=== PATIENT | female | born 1950 | race Two or more races ===

== ENCOUNTER 2017-06-13 08:56 | Outpatient (CLI) | payer OTHER ==
[~2017-06-13 08:56] MED LIST: CARTIA XT120 MG PO; COZAAR100 MG PO; NEURONTIN300 MG PO; NEURONTIN600 MG; NEXIUM20 MG/PACK PO; NEXIUM40 MG/PACK PO; PROCARDIA90 MG/BLIS; PROTONIX20 MG PO; SINGULAIR10 MG; SINGULAIR10 MG PO; SYNTHROID200 MCG; SYNTHROID300 MCG PO
== END 2017-06-13 09:01 | disposition home or self-care (01) ==
LOC: RAD 08:56
DX: M54.5 Low back pain (principal); M25.531 Pain in right wrist

== ENCOUNTER 2017-11-04 07:46 | Outpatient (CLI) | payer OTHER | END 2017-11-04 07:52 | disposition home or self-care (01) | LOC: RAD 07:46 | DX: M54.2 Cervicalgia (principal) ==

== ENCOUNTER 2018-01-01 16:44 | Inpatient (IN) | payer OTHER ==
[~2018-01-01] VITALS: Ht 160 cm; Wt 95.3 kg
== END 2018-01-19 11:04 | disposition home or self-care (01) | DRG 203 ==
LOC: MEDJ 16:44
PROC: 3E0F7GC Introduction of Other Therapeutic Substance into Respiratory Tract, Via Natural or Artificial Opening (ICD-10-PCS; principal; 2018-01-01)
PROC: 4A033R1 Measurement of Arterial Saturation, Peripheral, Percutaneous Approach (ICD-10-PCS; 2018-01-01)
DX: J45.52 Severe persistent asthma with status asthmaticus (principal); E03.8 Other specified hypothyroidism; I11.9 Hypertensive heart disease without heart failure; E78.4 Other hyperlipidemia; E11.9 Type 2 diabetes mellitus without complications; J30.89 Other allergic rhinitis; K76.0 Fatty (change of) liver, not elsewhere classified
CPT/HCPCS: 240

== ENCOUNTER 2018-05-08 10:45 | Outpatient (CLI) | payer OTHER | END 2018-05-08 10:51 | disposition home or self-care (01) | LOC: RAD 10:45 | DX: M25.511 Pain in right shoulder (principal); M25.512 Pain in left shoulder ==

== ENCOUNTER 2018-05-10 09:54 | Outpatient (CLI) | payer OTHER | END 2018-05-10 10:59 | disposition home or self-care (01) | LOC: SONOGRAMA 09:54 | DX: M75.121 Complete rotator cuff tear or rupture of right shoulder, not specified as traumatic (principal); M12.511 Traumatic arthropathy, right shoulder ==

== ENCOUNTER 2018-06-26 13:00 | Inpatient (IN) | payer OTHER ==
[~2018-06-26] VITALS: Ht 91.4 cm; Wt 5.0 kg
== END 2018-07-11 15:36 | DRG 202 ==
LOC: MEDJ 13:00 → MEDI 13:04 → MEDJ 15:18
PROVIDERS: ADMIT Internal Medicine
PROC: 3E0F7GC Introduction of Other Therapeutic Substance into Respiratory Tract, Via Natural or Artificial Opening (ICD-10-PCS; principal; 2018-06-26)
PROC: 4A033R1 Measurement of Arterial Saturation, Peripheral, Percutaneous Approach (ICD-10-PCS; 2018-06-26)
DX: J45.52 Severe persistent asthma with status asthmaticus (principal); J80 Acute respiratory distress syndrome; I11.9 Hypertensive heart disease without heart failure; E11.9 Type 2 diabetes mellitus without complications; Z79.4 Long term (current) use of insulin; E78.5 Hyperlipidemia, unspecified; K76.0 Fatty (change of) liver, not elsewhere classified; E66.09 Other obesity due to excess calories; E03.9 Hypothyroidism, unspecified

== ENCOUNTER 2018-10-25 09:09 | Outpatient (CLI) | payer OTHER | END 2018-10-25 09:16 | disposition home or self-care (01) | LOC: MAMO-SONO 09:09 | DX: N60.12 Diffuse cystic mastopathy of left breast (principal); N60.11 Diffuse cystic mastopathy of right breast; Z12.31 Encounter for screening mammogram for malignant neoplasm of breast; Z87.898 Personal history of other specified conditions ==

== ENCOUNTER → 2018-11-14 | Outpatient (CLI) | payer OTHER | END | disposition home or self-care (01) | LOC: NUCLEAR 11:00 | DX: M81.0 Age-related osteoporosis without current pathological fracture (principal) ==

== ENCOUNTER 2019-12-17 07:12 | Outpatient (CLI) | payer OTHER | END 2019-12-17 07:28 | disposition home or self-care (01) | LOC: RAD 07:12 → MAMO-SONO 07:45 | PROVIDERS: ATTEND Internal Medicine | DX: N60.11 Diffuse cystic mastopathy of right breast (principal); N60.12 Diffuse cystic mastopathy of left breast; M17.11 Unilateral primary osteoarthritis, right knee; Z12.31 Encounter for screening mammogram for malignant neoplasm of breast ==

== ENCOUNTER 2020-08-24 11:09 | Outpatient (CLI) | payer OTHER | END 2020-08-24 11:20 | disposition home or self-care (01) | LOC: TOM 11:09 | PROVIDERS: ATTEND Otolaryngology Facial Plastic Surgery | DX: M95.0 Acquired deformity of nose (principal); J34.2 Deviated nasal septum; J32.8 Other chronic sinusitis; R09.82 Postnasal drip; J37.0 Chronic laryngitis ==

== ENCOUNTER 2020-12-22 12:04 | Outpatient (CLI) | payer OTHER | END 2020-12-22 12:12 | disposition home or self-care (01) | LOC: RAD 12:04 | PROVIDERS: ATTEND Internal Medicine | DX: M79.641 Pain in right hand (principal); M79.642 Pain in left hand ==

== ENCOUNTER 2020-12-22 12:13 | Outpatient (CLI) | payer OTHER | END 2020-12-22 12:15 | disposition home or self-care (01) | LOC: NUCLEAR 12:13 | PROVIDERS: ATTEND Internal Medicine | DX: I11.9 Hypertensive heart disease without heart failure (principal); I25.10 Atherosclerotic heart disease of native coronary artery without angina pectoris ==

== ENCOUNTER 2021-02-10 13:33 | Outpatient (CLI) | payer OTHER | END 2021-02-10 14:06 | disposition home or self-care (01) | LOC: MAMO-SONO 13:33 → SONOGRAMA 13:45 → MAMO-SONO 14:06 | PROVIDERS: ATTEND Internal Medicine | DX: N60.11 Diffuse cystic mastopathy of right breast (principal); N60.12 Diffuse cystic mastopathy of left breast; Z12.31 Encounter for screening mammogram for malignant neoplasm of breast ==

== ENCOUNTER 2021-04-05 07:31 | Outpatient (CLI) | payer OTHER | END 2021-04-05 07:45 | disposition home or self-care (01) | LOC: SONOGRAMA 07:31 → MAMO-SONO 07:45 → SONOGRAMA 07:45 | PROVIDERS: ATTEND Internal Medicine | DX: R10.84 Generalized abdominal pain (principal) ==

== ENCOUNTER 2022-05-03 12:18 | Outpatient (CLI) | payer OTHER | END 2022-05-03 12:21 | disposition home or self-care (01) | LOC: RAD 12:18 | PROVIDERS: ATTEND Internal Medicine | DX: R07.9 Chest pain, unspecified (principal); M54.6 Pain in thoracic spine; M54.9 Dorsalgia, unspecified ==

== ENCOUNTER 2022-05-10 08:03 | Outpatient (CLI) | payer OTHER | END 2022-05-10 08:11 | disposition home or self-care (01) | LOC: MAMO-SONO 08:03 | PROVIDERS: ATTEND Internal Medicine | DX: N60.11 Diffuse cystic mastopathy of right breast (principal); N60.12 Diffuse cystic mastopathy of left breast ==

== ENCOUNTER 2022-08-05 12:43 | Outpatient (CLI) | payer OTHER | END 2022-08-05 12:50 | disposition home or self-care (01) | LOC: NUCLEAR 12:43 | PROVIDERS: ATTEND Internal Medicine Cardiovascular Disease | DX: M85.88 Other specified disorders of bone density and structure, other site (principal) ==

== ENCOUNTER 2022-10-06 09:04 | Outpatient (CLI) | payer OTHER | END 2022-10-06 09:11 | disposition home or self-care (01) | LOC: LAB 09:04 | PROVIDERS: ATTEND Internal Medicine Hematology & Oncology | DX: I10 Essential (primary) hypertension (principal); R74.02 Elevation of levels of lactic acid dehydrogenase [LDH]; K76.89 Other specified diseases of liver; D50.8 Other iron deficiency anemias; E55.9 Vitamin D deficiency, unspecified; D51.1 Vitamin B12 deficiency anemia due to selective vitamin B12 malabsorption with proteinuria; D51.0 Vitamin B12 deficiency anemia due to intrinsic factor deficiency; R79.9 Abnormal finding of blood chemistry, unspecified; C50.919 Malignant neoplasm of unspecified site of unspecified female breast; C25.9 Malignant neoplasm of pancreas, unspecified; C56.9 Malignant neoplasm of unspecified ovary; R97.8 Other abnormal tumor markers; A37.01 Whooping cough due to Bordetella pertussis with pneumonia; D51.3 Other dietary vitamin B12 deficiency anemia; D52.8 Other folate deficiency anemias; R97.0 Elevated carcinoembryonic antigen [CEA]; E08.65 Diabetes mellitus due to underlying condition with hyperglycemia; J32.4 Chronic pansinusitis ==

== ENCOUNTER 2022-11-05 08:57 | Outpatient (CLI) | payer OTHER | END 2022-11-05 09:01 | disposition home or self-care (01) | LOC: RAD 08:57 | PROVIDERS: ATTEND Internal Medicine Cardiovascular Disease | DX: I50.89 Other heart failure (principal); J45.998 Other asthma ==

== ENCOUNTER 2023-06-29 08:51 | Outpatient (CLI) | payer OTHER ==
[2023-06-29 10:04] LABS: HEMATOCRIT 37.2 % (36.0-45.00); HEMOGLOBIN 11.7 g/dL (12.0-15.00); MEAN CELL VOLUME 73.3 fL (80.00-100.00); MEAN CORPUSCULAR HEMOGLOBIN 23.1 pg (27.00-32.0); MEAN CORPUSCULAR HGB CONC 31.5 g/dl (32.0-36.0); PLATELET COUNT 243 K/uL (150-450); RED BLOOD COUNT 5.07 M/uL (4.00-6.00); RED CELL DISTRIBUTION WIDTH 15.2 % (11.5-14.5)
[2023-06-29 10:47] LABS: % SATURACION 33.4 % (15-50); ALBUMIN 3.6 gm/dL (3.4-5.0); BILIRUBIN TOTAL 0.34 mg/dL (0.3-1.2); CALCIUM 8.9 mg/dL (8.5-10.1); CREATININE SERUM 0.61 mg/dL (0.55-1.02); GFR 96.68; GLOBULINA 3.9 G/DL (2.4-3.5); POTASSIUM 4.08 mEq/L (3.5-5.1); TOTAL PROTEIN 7.5 gm/dL (6.4-8.2)
[2023-06-29 11:11] LABS: FOLIC ACID > 20.00 ng/ml (4.78-20); VITAMIN D3 25 HYDROXY 39.26 ng/ml (30-120)
[2023-06-29 11:42] LABS: PLATELET ESTIMATE NORMAL (NORMAL)
[2023-06-29 12:20] LABS: MANUAL PLATELET COUNT 294
[2023-06-30 10:11] LABS: CA 125 5.2 U/mL (0.0-38.1); CA 15-3 16.5 U/mL (0.0-25.0); CA 19-9 < 2 U/mL (0-35)
== END 2023-06-29 08:53 | disposition home or self-care (01) ==
LOC: LAB 08:51
PROVIDERS: ATTEND Internal Medicine Hematology & Oncology
DX: D51.3 Other dietary vitamin B12 deficiency anemia (principal); D52.8 Other folate deficiency anemias; D50.8 Other iron deficiency anemias; E55.9 Vitamin D deficiency, unspecified; R97.0 Elevated carcinoembryonic antigen [CEA]; E08.65 Diabetes mellitus due to underlying condition with hyperglycemia; I10 Essential (primary) hypertension; J32.4 Chronic pansinusitis

== ENCOUNTER 2023-08-26 10:54 | Outpatient (CLI) | payer OTHER | END 2023-08-26 11:18 | disposition home or self-care (01) | LOC: RAD 10:54 | PROVIDERS: ATTEND Internal Medicine Pulmonary Disease | DX: M17.11 Unilateral primary osteoarthritis, right knee (principal); M17.12 Unilateral primary osteoarthritis, left knee ==

== ENCOUNTER → 2023-12-01 08:10 | Outpatient (CLI) | payer OTHER ==
[2023-12-01 08:55] LABS: PH,URINE 6.5 (5.0-8.0); URINE APPEARANCE Clear; URINE BILIRRUBIN Negative (NEGATIVE); URINE BLOOD Negative; URINE COLOR Yellow; URINE GLUCOSE Negative (NEGATIVE); URINE LEUKOCYTE Negative; URINE NITRATE Negative; URINE PROTEIN Negative (NEGATIVE)
[2023-12-01 08:59] LABS: URINE BACTERIA 1791.6 uL (0.0-1933); URINE EPITHELIAL CELLS 15.4 uL (0.0-38.8); URINE WBC 16.6 uL (0.0-23.2)
[2023-12-01 09:05] LABS: HEMATOCRIT 36.8 % (36.0-45.00); HEMOGLOBIN 11.9 g/dL (12.0-15.00); MEAN CORPUSCULAR HEMOGLOBIN 23.6 pg (27.00-32.0); MEAN CORPUSCULAR HGB CONC 32.3 g/dl (32.0-36.0); PLATELET COUNT 250 K/uL (150-450); RED BLOOD COUNT 5.04 M/uL (4.00-6.00); RED CELL DISTRIBUTION WIDTH 15.1 % (11.5-14.5)
[2023-12-01 09:12] LABS: ERYTHROCYTE SEDIMENTATION RATE 43 mm/hr
[2023-12-01 09:44] LABS: ALBUMIN 3.4 gm/dL (3.4-5.0); BILIRUBIN TOTAL 0.4 mg/dL (0.3-1.2); CALCIUM 9.1 mg/dL (8.5-10.1); CREATININE SERUM 0.65 mg/dL (0.55-1.02); GFR 89.85; GLOBULINA 4.1 G/DL (2.4-3.5); POTASSIUM 3.96 mEq/L (3.5-5.1); TOTAL PROTEIN 7.5 gm/dL (6.4-8.2); TSH 1.05 uIU/mL (0.358-3.74)
== END | disposition home or self-care (01) ==
LOC: LAB 08:10
PROVIDERS: ATTEND Physical Medicine & Rehabilitation
DX: D50.8 Other iron deficiency anemias (principal); K75.2 Nonspecific reactive hepatitis; N39.0 Urinary tract infection, site not specified; M06.9 Rheumatoid arthritis, unspecified; E11.9 Type 2 diabetes mellitus without complications; E03.8 Other specified hypothyroidism

== ENCOUNTER 2023-12-01 08:39 | Outpatient (CLI) | payer OTHER | END 2023-12-01 08:47 | disposition home or self-care (01) | LOC: MRI 08:39 | PROVIDERS: ATTEND Physical Medicine & Rehabilitation | DX: M25.561 Pain in right knee (principal); M25.572 Pain in left ankle and joints of left foot; M17.11 Unilateral primary osteoarthritis, right knee; S83.241A Other tear of medial meniscus, current injury, right knee, initial encounter | CPT/HCPCS: 73721 ==

== ENCOUNTER → 2024-06-26 | Outpatient (CLI) | payer OTHER ==
[2024-06-26 08:12] LABS: HEMOGLOBIN 12.2 g/dL (12.0-15.00); MEAN CELL VOLUME 73.8 fL (80.00-100.00); MEAN CORPUSCULAR HGB CONC 31.2 g/dl (32.0-36.0); PLATELET COUNT 215 K/uL (150-450); RED BLOOD COUNT 5.29 M/uL (4.00-6.00); RED CELL DISTRIBUTION WIDTH 15.9 % (11.5-14.5)
[2024-06-26 08:17] LABS: PARTIAL THROMBOPLASTIN TIME 28.3 SECONDS (22.0-34.0); PROTHROMBIN TIME 10.9 SECONDS (9.0-11.5)
[2024-06-26 08:41] LABS: ALBUMIN 3.6 gm/dL (3.4-5.0); BILIRUBIN TOTAL 0.26 mg/dL (0.3-1.2); CALCIUM 8.9 mg/dL (8.5-10.1); CREATININE SERUM 0.74 mg/dL (0.55-1.02); GFR 77.14; GLOBULINA 4.2 G/DL (2.4-3.5); POTASSIUM 4.27 mEq/L (3.5-5.1); T4 FREE 0.81 NG/ML (0.76-1.46); TOTAL PROTEIN 7.8 gm/dL (6.4-8.2)
[2024-06-26 09:41] LABS: FOLIC ACID 12.93 ng/ml (4.78-20); VITAMIN D3 25 HYDROXY 26.95 ng/ml (30-120)
[2024-06-27 10:15] LABS: MANUAL PLATELET COUNT 396
[2024-06-27 10:22] LABS: PLATELET ESTIMATE NORMAL (NORMAL)
== END | disposition home or self-care (01) ==
LOC: LAB 06:50
PROVIDERS: ATTEND Internal Medicine Hematology & Oncology
DX: D52.8 Other folate deficiency anemias (principal); D50.8 Other iron deficiency anemias; E55.9 Vitamin D deficiency, unspecified; R97.0 Elevated carcinoembryonic antigen [CEA]; E08.65 Diabetes mellitus due to underlying condition with hyperglycemia; I10 Essential (primary) hypertension; J32.4 Chronic pansinusitis; R79.9 Abnormal finding of blood chemistry, unspecified; R74.02 Elevation of levels of lactic acid dehydrogenase [LDH]; K76.89 Other specified diseases of liver; D51.8 Other vitamin B12 deficiency anemias; E03.8 Other specified hypothyroidism; D68.8 Other specified coagulation defects

== ENCOUNTER → 2024-08-13 | Outpatient (CLI) | payer OTHER | END | disposition home or self-care (01) | LOC: MAMO-SONO 08:47 | PROVIDERS: ATTEND Internal Medicine | DX: N60.11 Diffuse cystic mastopathy of right breast (principal); N60.12 Diffuse cystic mastopathy of left breast; Z12.31 Encounter for screening mammogram for malignant neoplasm of breast ==